=== PATIENT | female | born 2000 | race Caucasian/White ===

== ENCOUNTER 2021-04-21 14:39 | Emergency (ER) | payer OTHER ==
[~2021-04-21] VITALS: Ht 157.5 cm; Wt 59.0 kg
== END 2021-04-21 21:39 | disposition home or self-care (01) ==
LOC: ER 14:39
DX: U07.1 COVID-19 (principal)

== ENCOUNTER 2021-05-06 08:00 | Outpatient (CLI) | payer OTHER | END 2021-05-06 08:30 | disposition home or self-care (01) | LOC: PPH VACUNA 08:00 | PROVIDERS: ATTEND Emergency Medicine Pediatric Emergency Medicine | DX: Z23 Encounter for immunization (principal) ==